=== PATIENT | male | born 1980 | race Caucasian/White ===

== ENCOUNTER 2017-10-24 12:06 | Outpatient (CLI) | payer OTHER | END 2017-10-24 14:33 | disposition home or self-care (01) | LOC: RAD 12:06 | DX: R10.9 Unspecified abdominal pain (principal) ==

== ENCOUNTER → 2017-10-24 | Outpatient (CLI) | payer OTHER ==
[~2017-10-24] VITALS: Ht 152.4 cm; Wt 83.9 kg
[~2017-10-24] MED LIST: ALLEGRA ALLERG180 MG PO; FLONASE16 GM NS; TESSALON200 MG PO
== END | disposition home or self-care (01) ==
LOC: PPHC 09:36
DX: Z01.89 Encounter for other specified special examinations (principal); A08.8 Other specified intestinal infections

== ENCOUNTER 2018-05-30 16:08 | Outpatient (CLI) | payer OTHER | END 2018-05-30 16:32 | disposition home or self-care (01) | LOC: RAD 501 16:08 | DX: M54.2 Cervicalgia (principal) ==

== ENCOUNTER 2019-03-15 09:10 | Emergency (ER) | payer OTHER ==
[~2019-03-15] VITALS: Ht 177.8 cm; Wt 90.7 kg
== END 2019-03-15 18:30 | disposition home or self-care (01) ==
LOC: ER 09:10
DX: K58.9 Irritable bowel syndrome, unspecified (principal)

== ENCOUNTER → 2019-07-03 09:11 | Outpatient (CLI) | payer OTHER | END | disposition home or self-care (01) | LOC: LAB 09:11 | DX: J11.1 Influenza due to unidentified influenza virus with other respiratory manifestations (principal); J20.0 Acute bronchitis due to Mycoplasma pneumoniae ==

== ENCOUNTER → 2019-10-11 15:39 | Outpatient (CLI) | payer OTHER | END | disposition home or self-care (01) | LOC: LAB 15:39 | DX: J11.1 Influenza due to unidentified influenza virus with other respiratory manifestations (principal); R05 Cough ==

== ENCOUNTER 2021-08-10 10:20 | Emergency (ER) | payer OTHER ==
[~2021-08-10] VITALS: Ht 177.8 cm; Wt 81.6 kg
== END 2021-08-10 13:20 | disposition home or self-care (01) ==
LOC: ER 10:20
DX: S59.901A Unspecified injury of right elbow, initial encounter (principal); X58.XXXA Exposure to other specified factors, initial encounter; Y92.89 Other specified places as the place of occurrence of the external cause

== ENCOUNTER 2022-06-01 08:00 | Emergency (ER) | payer OTHER ==
[~2022-06-01] VITALS: Ht 177.8 cm; Wt 83.9 kg
== END 2022-06-01 11:41 | disposition home or self-care (01) ==
LOC: ER 08:00
DX: R51.9 Headache, unspecified (principal); R00.2 Palpitations; R11.0 Nausea; Z20.822 Contact with and (suspected) exposure to COVID-19

== ENCOUNTER 2023-03-17 08:35 | Emergency (ER) | payer OTHER ==
[~2023-03-17] VITALS: Ht 177.8 cm; Wt 86.2 kg
[2023-03-17] MEDS ORDERED: ROSUVASTATIN CA20 MG PO (09:00)
[2023-03-17] MEDS ORDERED: MOBIC7.5 MG PO (11:39)
== END 2023-03-17 11:45 | disposition home or self-care (01) ==
LOC: ER 08:35
DX: M12.542 Traumatic arthropathy, left hand (principal); M79.642 Pain in left hand